=== PATIENT | male | born 1925 | race Caucasian/White ===

== ENCOUNTER 2016-06-04 10:00 | Inpatient (IN) | payer OTHER ==
[~2016-06-04] VITALS: Ht 172.7 cm; Wt 95.9 kg
[~2016-06-04 10:00] MED LIST: BACITRACIN 50,000 UNIT ONE; BUPIVACAINE/PF-EPI 0.5% 1:200K ONE; THROMBIN 5,000 UNIT VIAL TP ONE
[2016-06-04] MEDS ORDERED: LACTATED RINGERS 1,000 ML IV SCH (10:25)
[2016-06-04] MEDS ORDERED: LIDOCAINE 1%, 2ML SQ PRN (10:30)
[2016-06-04 11:09] VITALS: BP 122/76
[2016-06-04] MEDS ORDERED: VANCOMYCIN PMX 1GM/200ML 200 ML IV STA (11:30)
[2016-06-04] MEDS ORDERED: BUDE10.2 INH (11:39)
[2016-06-04] MEDS ORDERED: CHOL100018 PO (11:39)
[2016-06-04] MEDS ORDERED: ATOR20TA9 PO (11:39)
[2016-06-04] MEDS ORDERED: POTASSIUM PO (11:39)
[2016-06-04] MEDS ORDERED: OMEGA XL PO (11:39)
[2016-06-04] MEDS ORDERED: SENN1TAB27 PO (11:39)
[2016-06-04] MEDS ORDERED: BUME2TAB PO ×2 (11:39)
[2016-06-04] MEDS ORDERED: DOCU100C8 PO (11:39)
[2016-06-04] MEDS ORDERED: OMEP-110 PO (11:39)
[2016-06-04] MEDS ORDERED: CARV3.122 PO (11:39)
[2016-06-04] MEDS ORDERED: [UNRECOGNIZED DRUG - OTHER] (11:39)
[2016-06-04] MEDS ORDERED: MAGN420T PO (11:39)
[2016-06-04] MEDS ORDERED: DOXYCYCLINE PO (11:39)
[2016-06-04] MEDS ORDERED: WARF5TAB7 PO (11:39)
[2016-06-04] MEDS ORDERED: ACETAMINOPHEN PO (11:46)
[2016-06-04] MEDS ORDERED: TRAZ100T15 PO (11:46)
[2016-06-04] MEDS ORDERED: FENTANYL PATCH TP (11:46)
[2016-06-04] MEDS ORDERED: TERA5CAP3 PO (11:46)
[2016-06-04] MEDS ORDERED: ALBUTEROL INHALER INH (11:46)
[2016-06-04] MEDS ORDERED: FENTANYL PF 250 MCG/5ML ONE (13:37)
[2016-06-04] MEDS ORDERED: DEXAMETHASONE 4 MG/ML, 1ML ONE (14:20)
[2016-06-04] MEDS ORDERED: PHENYLEPHRINE 10 MG/ML ONE (14:20)
[2016-06-04] MEDS ORDERED: PROPOFOL 10 MG/ML, 20ML ONE (14:20)
[2016-06-04] MEDS ORDERED: EPHEDRINE 50 MG/ML, 1ML ONE (14:20)
[2016-06-04] MEDS ORDERED: NEOSTIGMINE 1 MG/ML, 10ML ONE (14:20)
[2016-06-04] MEDS ORDERED: ROCURONIUM 10 MG/ML ONE (14:20)
[2016-06-04] MEDS ORDERED: GLYCOPYRROLATE 0.2MG/1ML ONE (14:20)
[2016-06-04] MEDS ORDERED: ONDANSETRON 2MG/ML, 2ML ONE (14:20)
[2016-06-04] MEDS ORDERED: VANCOMYCIN 1,000 MG ONE (14:41)
[2016-06-04] MEDS ORDERED: VASOPRESSIN 20 UNIT/ML, 1ML ONE (14:59)
[2016-06-04] MEDS ORDERED: PROMETHAZINE 25 MG/ML, 1ML IV PRN (15:00)
[2016-06-04] MEDS ORDERED: OXYcodone 5 MG/5 ML ORAL.SOL UDC PO PRN (15:00)
[2016-06-04] MEDS ORDERED: EPHEDRINE 50 MG/ML, 1ML IVPush PRN (15:00)
[2016-06-04] MEDS ORDERED: ONDANSETRON 2MG/ML, 2ML IVPush PRN (15:00)
[2016-06-04] MEDS ORDERED: HYDROcodone/APAP 7.5-325MG/15ML UDC PO PRN (15:00)
[2016-06-04] MEDS ORDERED: ACETAMINOPHEN 325 MG TABLET PO PRN (15:00)
[2016-06-04] MEDS ORDERED: FENTANYL PF 100 MCG/2ML IV PRN (15:00)
[2016-06-04] MEDS ORDERED: HYDROmorphone 1 MG/ML, 1ML IV PRN (15:00)
[2016-06-04] MEDS ORDERED: hydrALAzine 20 MG/ML, 1ML IV PRN (15:00)
[2016-06-04] MEDS ORDERED: LABETALOL 5MG/ML, 20ML IV PRN (15:00)
[2016-06-04] MEDS ORDERED: TRAZODONE 100MG TABLET PO PRN (17:00)
[2016-06-04] MEDS ORDERED: ALBUTEROL SULFATE 2.5 MG/3 ML HHN PRN (17:00)
[2016-06-04 17:05] VITALS: BP 108/78
[2016-06-04] MEDS ORDERED: ONDANSETRON 2MG/ML, 2ML IV PRN (17:30)
[2016-06-04] MEDS ORDERED: TIZANIDINE 4MG TABLET PO PRN (17:30)
[2016-06-04] MEDS ORDERED: DIPHENHYDRAMINE 50 MG/ML, 1ML IVPush PRN (17:30)
[2016-06-04] MEDS ORDERED: OXYcodone/APAP 5/325MG TABLET PO PRN (17:30)
[2016-06-04] MEDS ORDERED: DIPHENHYDRAMINE 25 MG CAPSULE PO PRN (17:30)
[2016-06-04] MEDS ORDERED: morphine SULFATE 10 MG/ML, 1ML IV PRN (17:30)
[2016-06-04] MEDS: OMEPRAZOLE 20 MG CAPSULE.DR PO SCH (18:19)
[2016-06-04] MEDS: CARVEDILOL 3.125 MG TABLET PO SCH (18:20)
[2016-06-04] MEDS: CEFAZOLIN PMX 1GM/50ML 50 ML IVPB SCH (18:20)
[2016-06-04] MEDS: NS + 20MEQ KCL 1,000 ML IV SCH (18:20)
[2016-06-04 19:08] VITALS: BP 116/71
[2016-06-04] MEDS: BUMETANIDE 1 MG TABLET PO SCH (23:07)
[2016-06-04] MEDS: SENNA/DOCUSATE TABLET PO SCH (23:08)
[2016-06-04] MEDS: DOCUSATE 50 MG/5 ML ORAL SOL PO SCH (23:08)
[2016-06-04] MEDS: ATORVASTATIN 20 MG TABLET PO SCH (23:08)
[2016-06-04] MEDS: POTASSIUM CHLORIDE 20 MEQ TAB.ER.PRT PO SCH (23:08)
[2016-06-04] MEDS: TERAZOSIN 5MG CAPSULE PO SCH (23:08)
[2016-06-04] MEDS: OCULAR LUBRICANT OPHTH OINT 3.5 GM OP SCH (23:09)
[2016-06-05 00:07] VITALS: BP 102/67
[2016-06-05] MEDS: CEFAZOLIN PMX 1GM/50ML 50 ML IVPB SCH (02:30)
[2016-06-05 03:50] VITALS: BP 102/70
[2016-06-05 05:39] LABS: HEMOGLOBIN 11.6 g/dL (13.7-18.0)
[2016-06-05] MEDS: NS + 20MEQ KCL 1,000 ML IV SCH ×2 (06:00→18:30)
[2016-06-05] MEDS: CARVEDILOL 3.125 MG TABLET PO SCH ×2 (06:03→18:00)
[2016-06-05 06:04] LABS: BLOOD UREA NITROGEN 31 mg/dL (7-18)
[2016-06-05 07:48] VITALS: BP 104/71
[2016-06-05] MEDS: MAGNESIUM OXIDE 400 MG TABLET PO SCH (08:43)
[2016-06-05] MEDS: DOXYCYCLINE 100MG TABLET PO SCH (08:43)
[2016-06-05] MEDS: OMEPRAZOLE 20 MG CAPSULE.DR PO SCH ×2 (08:43→20:56)
[2016-06-05] MEDS: SENNA/DOCUSATE TABLET PO SCH ×2 (08:44→20:56)
[2016-06-05] MEDS: DOCUSATE 50 MG/5 ML ORAL SOL PO SCH ×2 (08:44→20:57)
[2016-06-05] MEDS: BUMETANIDE 1 MG TABLET PO SCH ×2 (08:44→15:01)
[2016-06-05] MEDS ORDERED: FENTANYL REMOVE PATCH NOTE XX SCH (09:00)
[2016-06-05] MEDS ORDERED: FENTANYL 12 MCG PATCH TD SCH (09:00)
[2016-06-05] MEDS: FLUTICASONE/VILANTEROL 200-25MCG/INH INH SCH (09:47)
[2016-06-05 14:58] VITALS: BP 103/67
[2016-06-05 17:51] VITALS: BP 102/65
[2016-06-05 20:53] VITALS: BP 105/66
[2016-06-05] MEDS: ATORVASTATIN 20 MG TABLET PO SCH (20:56)
[2016-06-05] MEDS: POTASSIUM CHLORIDE 20 MEQ TAB.ER.PRT PO SCH (20:56)
[2016-06-05] MEDS: TERAZOSIN 5MG CAPSULE PO SCH (20:57)
[2016-06-05] MEDS: OCULAR LUBRICANT OPHTH OINT 3.5 GM OP SCH (20:57)
[2016-06-05] MEDS: HYDROcodone/APAP 5/325 TABLET PO PRN (21:10)
[2016-06-06 01:30] VITALS: BP 86/58
[2016-06-06] MEDS: HYDROcodone/APAP 5/325 TABLET PO PRN ×2 (01:40→09:37)
[2016-06-06 02:07] VITALS: BP 102/67
[2016-06-06 06:50] VITALS: BP 123/60
[2016-06-06 07:25] VITALS: BP 109/67
[2016-06-06] MEDS: NS + 20MEQ KCL 1,000 ML IV SCH (07:33)
[2016-06-06] MEDS: CARVEDILOL 3.125 MG TABLET PO SCH (07:33)
[2016-06-06] MEDS ORDERED: TIZA4TAB PO (08:14)
[2016-06-06] MEDS ORDERED: HYDR-3138 PO (08:14)
[2016-06-06] MEDS: FLUTICASONE/VILANTEROL 200-25MCG/INH INH SCH (09:35)
[2016-06-06] MEDS: BUMETANIDE 1 MG TABLET PO SCH (09:37)
[2016-06-06] MEDS: OMEPRAZOLE 20 MG CAPSULE.DR PO SCH (09:37)
[2016-06-06] MEDS: MAGNESIUM OXIDE 400 MG TABLET PO SCH (09:38)
[2016-06-06] MEDS: DOCUSATE 50 MG/5 ML ORAL SOL PO SCH (09:38)
[2016-06-06] MEDS: DOXYCYCLINE 100MG TABLET PO SCH (09:38)
[2016-06-06] MEDS: SENNA/DOCUSATE TABLET PO SCH (09:38)
[2016-06-06 10:12] VITALS: BP 102/61
== END 2016-06-06 10:52 | disposition home or self-care (01) | DRG 517 ==
LOC: OUT 10:00 → 4NOR 16:50 → OUT 19:34 → 4NOR 19:35
PROVIDERS: ADMIT Neurological Surgery; ATTEND Neurological Surgery
PROC: 01NB0ZZ Release Lumbar Nerve, Open Approach (ICD-10-PCS; principal; 2016-06-04 12:30)
DX: M48.06 Spinal stenosis, lumbar region (principal); I10 Essential (primary) hypertension; I48.91 Unspecified atrial fibrillation; M19.90 Unspecified osteoarthritis, unspecified site; Z96.643 Presence of artificial hip joint, bilateral; Z96.612 Presence of left artificial shoulder joint; Z96.611 Presence of right artificial shoulder joint; Z82.49 Family history of ischemic heart disease and other diseases of the circulatory system
CPT/HCPCS: 36415; 72100; 80048; 81003; 85025; 85610; 85730; 93005; J0690; J1100; J2405; J2704; J2710; J3010; J3370; J3480; J3490; J2370